=== PATIENT | female | born 2005 | race Caucasian/White ===

== ENCOUNTER 2025-05-21 10:10 | Emergency (ER) | payer BC, SELFPAY ==
[2025-05-21 10:28] VITALS: BP 111/74; PULSE 82; RESP 16; TEMP 36.9; O2SAT 99
[2025-05-21 10:35] LABS: EDSTREPNEGPOS1 Positive (Negative)
--- NOTE | 2025-05-21 10:45 | ED_ITS ---
HPI - URI/Sore Throat General Chief Complaint: Upper Respiratory Infection Stated Complaint: Sore Throat Time Seen by Provider: 05/21/25 10:23 Source: patient and RN notes reviewed Mode of arrival: ambulatory Limitations: no limitations History of Present Illness HPI Narrative: 20-year-old female patient presents today with a 4 day history sore throat, cough, nasal congestion,, fever up to 102. She has been taking Tylenol with some improvement. Denies shortness of breath or difficulty swallowing. History of mono a year ago. Related Data Allergies Allergy/AdvReac Type Severity Reaction Status Date / Time Penicillins Allergy Unknown Rash Verified 05/21/25 10:24 [facility] Comments At time of signature, I have reviewed and agree with nursing past medical, surgical, social and family history unless otherwise noted. Please see nursing chart for further information. There is no relevant family history pertinent to the presenting complaint Exam Narrative: GENERAL: Mildly ill-appearing, well-nourished, and in no acute distress. HEAD: Normocephalic, atraumatic. EYES: EOMI. No redness or drainage. Conjunctivae normal. ENT: Mucous membranes pink and moist. Nares clear. No rhinorrhea. TMs normal bilaterally. Throat erythematous and mildly edematous. Tonsils 2+ without exudate. Uvula midline. NECK: Normal AROM. Supple. Bilateral anterior cervical chain lymphadenopathy. CHEST: No respiratory distress. Clear to auscultation. HEART: Regular rate and rhythm. No murmur appreciated. EXTREMITIES: Normal range of motion. No edema. SKIN: Warm, dry, no rash. Capillary refill normal. Normal skin turgor. NEURO: No focal deficits. Alert and oriented x3. Gait steady. PSYCH: Normal affect. No signs of depression or anxiety. Course Course Level of Care: Express Care Visit Vital Signs Vital signs: Vital Signs Temperature 98.5 F 05/21/25 10:28 Pulse Rate 82 05/21/25 10:28 Respiratory Rate 16 05/21/25 10:28 Blood Pressure 111/74 05/21/25 10:28 Pulse Oximetry 99 05/21/25 10:28 Temperature 98.5 F 05/21/25 10:28 Pulse Rate 82 05/21/25 10:28 Respiratory Rate 16 05/21/25 10:28 Blood Pressure 111/74 05/21/25 10:28 Pulse Oximetry 99 05/21/25 10:28 Reviewed MDM - URI/Sore Throat MDM Narrative Medical decision making narrative: 20-year-old female patient presents today with a 4 day history sore throat, cough, nasal congestion,, fever up to 102. She has been taking Tylenol with some improvement. Denies shortness of breath or difficulty swallowing. Upon exam, patient is mildly ill appearing. Throat erythematous and mildly edematous. Tonsils 2+ without exudate. Uvula midline. Rapid strep positive. Patient has a penicillin allergy causes a rash. She will prescribed a course of Keflex. Patient agrees with plan. Vital signs stable. Anticipatory guidance and ED precautions given. Differential Diagnosis Differential diagnosis: Likely upper respiratory infection, viral infection, pharyngitis and other (Strep throat) Lab Data Attestation: I reviewed the patient's lab results. Labs: Lab Results 05/21/25 Range/Units 10:34 POC Grp A Strep Screen Positive (Negative) Critical Care Time Critical Care Time Critical Care Time: No Discharge Plan Discharge Clinical Impression: Strep throat Patient Disposition: Home Condition: Stable Instructions: Antibiotic Form, Strep Throat (DC) Additional Instructions: You have tested positive for strep throat. Please take the Keflex as prescribed until gone. You will be contagious for 24 hours after starting the medication. Take Tylenol or Ibuprofen for pain or fever, if able. Rest and stay hydrated. Follow up with your PCP in 3 days if symptoms are not improving. Go to the ER immediately if you develop worsening symptoms such as shortness of breath, difficulty swallowing. Patient Language: Latvian Prescriptions: New cephalexin 500 mg capsule 500 mg PO BID 10 Days Qty: 20 0RF Follow-up/Referrals: PHYSICIAN,CIVIL LABORATORY TECHNICIAN [Primary Care Provider, Internal Medicine] Stand Alone Forms: Work/School Release IP Time of Disposition: 10:50
== END 2025-05-21 11:03 | disposition home or self-care (01) ==
PROVIDERS: Emergency Provider Nurse Practitioner
DX: J02.0 Streptococcal pharyngitis (principal)
CPT/HCPCS: 87880; 99203; G0463